=== PATIENT | male | born 1995 | race Caucasian/White ===

== ENCOUNTER → 2021-01-11 | Day surgery (SDC) | payer SELFPAY ==
[~2021-01-11] VITALS: Ht 172.7 cm; Wt 70.3 kg
[~2021-01-11] MED LIST: BUSP10TA PO; IV RINGERS,LACTATED 1000ML 1,000 ML IV SCH; LIDOCAINE 2% PF 5 ML VIAL. ONE; PANT40TA77 PO; PROPOFOL 10 MG/ML (20ML) VIAL. IV ONE
[2021-01-11 07:22] VITALS: BP 139/98
[2021-01-11 08:33] VITALS: BP 120/83
--- NOTE | 2021-01-11 12:26 | CONS ---
DATE OF CONSULTATION: 01/11/2021 REASON FOR CONSULTATION: Pancreatic stent removal. HISTORY OF PRESENT ILLNESS: A 25-year-old male with past medical history significant for pancreatitis, chronic gastritis, undergone cholecystectomy and pancreatic stent placement, here for removal. He has been a heavy drinker and smoker in the past, but is now abstinent. He is here today for pancreatic stent removal after recent pancreatic manipulation. Denies any pain. Weight and appetite have been stable. He has no nausea or vomiting presently . PAST MEDICAL HISTORY: Chronic pancreatitis, GERD. ALLERGIES: CEPHALOSPORINS. MEDICATIONS: Include BuSpar and pantoprazole. FAMILY AND SOCIAL HISTORY: Significant for diabetes in his father, HI in his father and grandmother, hypertension in his mother. SOCIAL HISTORY: He is a former smoker and drinker. PAST SURGICAL HISTORY: Significant for cholecystectomy, hernia repair, pancreatic and biliary duct sphincterotomies. REVIEW OF SYSTEMS: Per records. PHYSICAL EXAMINATION: GENERAL: Reveals a well-nourished, well-developed male, awake and alert, in no acute distress. VITAL SIGNS: Temperature is 97, pulse 86, respiratory rate is 18. LUNGS: Clear. CARDIOVASCULAR: Reveals an S1, S2, without S3, S4 or appreciable murmur. ABDOMEN: Reveals a soft abdomen, normal bowel sounds, without appreciable hepatosplenomegaly. EXTREMITIES: Reveals no cyanosis, clubbing or edema. IMPRESSION AND PLAN: Retained pancreatic stent. EGD/ERCP with stent removal was recommended. Risks and benefits were discussed, the patient is willing to proceed at this time. I thank Dr. Ricardo Burciaga for allowing us to consult and participate in this patient's care. STORM DR: Darryl TID: [id number] CC: Ricardo Burciaga MD
== END | disposition home or self-care (01) ==
LOC: ENDOS 06:58
PROVIDERS: ATTEND Internal Medicine Gastroenterology
DX: Z46.59 Encounter for fitting and adjustment of other gastrointestinal appliance and device (principal); T18.3XXS Foreign body in small intestine, sequela; K86.1 Other chronic pancreatitis; K21.9 Gastro-esophageal reflux disease without esophagitis; F41.9 Anxiety disorder, unspecified; F32.9 Major depressive disorder, single episode, unspecified; Z87.891 Personal history of nicotine dependence; Z79.899 Other long term (current) drug therapy; Z98.890 Other specified postprocedural states; Z90.49 Acquired absence of other specified parts of digestive tract; Z82.49 Family history of ischemic heart disease and other diseases of the circulatory system; Z83.3 Family history of diabetes mellitus; X58.XXXS Exposure to other specified factors, sequela
CPT/HCPCS: 43247; J2704; 43266